=== PATIENT | male | born 1995 ===

== ENCOUNTER 2018-07-06 14:54 | Emergency (ER) | payer OTHER ==
[~2018-07-06] VITALS: Ht 160 cm; Wt 73.9 kg
[2018-07-06 15:05] VITALS: TEMP 98.1
[2018-07-06 16:46] VITALS: BP 126/76
== END 2018-07-06 16:46 | disposition home or self-care (01) ==
LOC: ED 14:54
DX: S86.812A Strain of other muscle(s) and tendon(s) at lower leg level, left leg, initial encounter (principal); W17.2XXA Fall into hole, initial encounter
CPT/HCPCS: 99283